=== PATIENT | male | born 1940 | race Caucasian/White ===

== ENCOUNTER 2017-03-21 15:41 | Inpatient (IN) | payer OTHER, MEDICARE ==
[~2017-03-21] VITALS: Ht 172.7 cm; Wt 31.3 kg
--- NOTE | ~2017-03-21 | PR ---
[place], [place] PROGRESS NOTE NAME: [facility] [id number] UNIT #: [id number] ROOM: 312 DOCTOR: GIANCARLO HENDRICKS MD BIRTHDATE: [birth year] DOS: 03/28/2017 CHIEF COMPLAINT: "Good morning. Thanks for coming." SUMMARY OF THE VISIT: The patient was interviewed as he sat in the dining area. He had finished his breakfast and he was sitting and watching television. He engaged in brief superficial conversation. He remains pleasantly confused, but not agitated. There was no mood lability noted. His responses tended to be short and simple, at times very vague and at other times inappropriate, but pleasant. MENTAL STATUS: He is alert and oriented to self. It is unclear if he realizes he is in the hospital. He is certainly not oriented to time. Mood does seem to be trending towards euthymia and affect is much more appropriate. There are no symptoms of hypomania or chau. There are no overt auditory or visual hallucinations. No delusions, no paranoia. Short term memory is exceptionally poor. Otherwise, he is intact. PLAN: His valproic acid level is therapeutic at 92.1. I will renew his p.r.n. Ativan in case he requires p.r.n. intervention, maintain other psychotropics, engage in individual and glover milieu activity, returning to [facility] [address] when psychiatrically stable. GIANCARLO HENDRICKS MD CM:PNTRANS [phone] GIANCARLO HENDRICKS MD 03/28/17 215 interface
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
--- NOTE | ~2017-03-21 | PR ---
[place], [place] PROGRESS NOTE NAME: [id number] UNIT #: [id number] ROOM: 312 DOCTOR: GIANCARLO HENDRICKS MD BIRTHDATE: [birth year] DOS: 03/29/2017 CHIEF COMPLAINT: "Oh! Thank you for everything. Everything has been fine." SUMMARY OF THE VISIT: The patient was interviewed as he just sat down in the dining area to eat breakfast. He was bright and pleasant upon approach and offered no complaints. He reports that he slept well and is ready for breakfast and something to drink. He was very complementary about being here, but could not tell me exactly how long he has been here. MENTAL STATUS: He was alert and oriented to person, possibly place, but not time. Mood did seem to be trending towards euthymia and affect is much more appropriate. There are no symptoms of chau or hypomania. There are no auditory or visual hallucinations. No delusions are present. Short term memory is poor. Otherwise, he is intact. PLAN: I will maintain the current psychotropic regimen, engage in individual and glover milieu activity with the ultimate plan to return to [address] when psychiatrically stable. GIANCARLO HENDRICKS MD CM:PNTRANS [id number] GIANCARLO HENDRICKS MD 03/29/17 1145 interface
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
--- NOTE | ~2017-03-21 | PR ---
[place], [place] PROGRESS NOTE [id number] UNIT #: [id number] ROOM: 312 DOCTOR: GIANCARLO HENDRICKS MD BIRTHDATE: [birth year] DOS: 03/27/2017 INTERVAL NOTE CHIEF COMPLAINT: "Good morning, thank you for breakfast." SUMMARY OF THE VISIT: The patient was interviewed as he rested in bed. He engaged readily in conversation, most of it superficial. He even though was spontaneous and did thank me for providing him breakfast. He was fairly pleasant overall. Nurses' notes indicate that his behavior seems to have been improving gradually over the last 24-36 hours. There have been no episodes of extreme agitation, mood lability or sexually inappropriate behavior. He does seem to be tolerating the current medication regimen well. MENTAL STATUS: He is alert and oriented to self, possibly place, not time. Mood does seem to be trending towards euthymia. Affect is more appropriate. There are no symptoms of chau or hypomania. There are no overt auditory or visual hallucinations, delusions or paranoia. Short-term memory is poor, otherwise he is intact. PLAN: I will go ahead and maximize out the dose of Namenda from 15 mg a day to 20 mg a day given in 10 mg twice daily dosing. I will recheck a valproic acid level in the a.m. to ensure that it is therapeutic. We will engage in individual and glover milieu activity with the plan to return to the [facility] [address] when psychiatrically stable. GIANCARLO HENDRICKS MD CM:PNTRANS [phone] GIANCARLO HENDRICKS MD 03/28/17 0209 interface
--- NOTE | ~2017-03-21 | PR ---
[place], [place] PROGRESS NOTE [id number] UNIT #: [id number] ROOM: 312 DOCTOR: GIANCARLO HENDRICKS MD BIRTHDATE: [birth year] DOS: 03/23/2017 CHIEF COMPLAINT: "Where do I go for breakfast." SUMMARY OF THE VISIT: The patient was interviewed as he was pacing around in the dining area. He stopped and engaged in conversation with me. He was much more goal directed in his speech today and more interested in talking to me than he was yesterday. Nurses report that after a rather difficult 24 hours here, he has subsequently restabilized and seems to be more redirectable. He does seem to respond to a more firm response and does tend to back down. He needs a great deal of support and redirection as well as he does seem to be somewhat fretful and fearful that tends to then trigger his anxiety leaving to agitation. He does seem to be tolerating the current medication regimen well and I see no sedation, somnolence, or other side effects. MENTAL STATUS: He is alert and oriented to self, possibly place, not time. Mood does seem to be slightly trending towards euthymia this morning and he does seem to be more appropriate in his responses. There is no symptom suggestive of chau or hypomania. There are no overt auditory or visual hallucinations noted. No paranoia. Short-term memory is exceedingly poor, otherwise he is intact. PLAN: I will increase Namenda from 5 mg a day to 5 mg twice daily while subsequently increasing the Exelon patch from 4.6 mg daily to 9.5 mg a day. Both of these in order to improve or maintain ADLs, behavior, and cognition. Continue Depakote as is. We will check a level in the a.m. Engage in individual and glover milieu activity with the plan to return to the [facility] [address] when psychiatrically stable. GIANCARLO HENDRICKS MD CM:PNTRANS [phone] GIANCARLO HENDRICKS MD 03/23/17 0927 interface
--- NOTE | ~2017-03-21 | PR ---
[place], [place] PROGRESS NOTE NAME: [facility]AY[facility] [id number] UNIT #: [id number] ROOM: 312 DOCTOR: GIANCARLO HENDRICKS MD BIRTHDATE: [birth year] DOS: 03/25/2017 INTERVAL NOTE CHIEF COMPLAINT: "Morning, I had a good breakfast thank you." SUMMARY OF THE VISIT: The patient was interviewed in the dining area where he sat by himself. He had most of his breakfast eaten and thanked me for having brought his breakfast to him. He engaged readily in conversation and tended to be somewhat minimizing in his comments. Nurses report that he seems to be trending toward improvement and that his behavior yesterday seemed much more pleasant. There was no verbal or physical aggression noted and no sexually inappropriate behavior. MENTAL STATUS: He is alert and oriented to self, possibly place, not time. Mood seems to be trending towards euthymia. Affect is more appropriate. There are no symptoms of chau or hypomania. No psychotic symptoms are noted. He does process slowly and short term memory is poor. PLAN: Screening examination showed his vitamin D to be low at 14.4, so I will start him on vitamin D 50,000 international units weekly. Vitamin B12 is fairly therapeutic at 274 and he is close enough to being deficient that I will start him on vitamin B12 injection 1000 mcg IM today and monthly thereafter to prevent a B12 deficiency. We will engage him in individual and glover milieu activity with the ultimate plan to return back to the [facility] [address] when psychiatrically stable. GIANCARLO HENDRICKS MD CM:PNTRANS GIANCARLO HENDRICKS MD 03/25/17 0919 interface
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
--- NOTE | ~2017-03-21 | PR ---
[place], [place] PROGRESS NOTE NAME: ERICK NAYAK UNIT #: [id number] ROOM: 312 DOCTOR: GIANCARLO HENDRICKS MD BIRTHDATE: [birth year] DOS: 03/26/2017 INTERVAL NOTE CHIEF COMPLAINT: "Oh thank you for breakfast, this all looks good." SUMMARY OF THE VISIT: The patient was interviewed in the dining area where he was sitting, eating his breakfast. He stopped and engaged readily in conversation. He was fairly bright and pleasant. He reported that he slept well and has a good appetite. He was very much approximate on how long he has been here stating that he believes he has been here in the hospital for roughly a week. He was more pleasant and cooperative than he had been previously and exhibited no mood lability, agitation, aggression or sexually inappropriate behavior. MENTAL STATUS: He is alert and oriented to person, place, not necessarily time. Mood does seem to be trending towards euthymia. Affect is more appropriate. There are no symptoms of hypomania or chau. There are no overt auditory or visual hallucinations. No delusions, no paranoia. Short term memory is poor. Otherwise, he is intact. PLAN: I will increase Namenda to 10 mg in the morning and 5 mg at night with the ultimate goal of achieving 20 mg daily to augment the effectiveness of the Exelon patch. We will continue to engage him in individual and glover milieu activity with the ultimate plan to return either to the [facility] [address] or the least restrictive environment when psychiatrically stable. GIANCARLO HENDRICKS MD CM:PNTRANS [phone] GIANCARLO HENDRICKS MD 03/27/17 0012 interface
[2017-03-21] MEDS ORDERED: COLACE100 MG PO (15:45)
[2017-03-21] MEDS ORDERED: LEVOTHYROXINE0.05 MG PO (15:46)
[2017-03-21] MEDS ORDERED: TOPROL XL25 MG PO (15:47)
[2017-03-21] MEDS ORDERED: MULTIVITAMINS1 EACH PO (15:48)
[2017-03-21] MEDS ORDERED: ASPIRIN81 M1 PO (15:49)
[2017-03-21] MEDS ORDERED: RISPERDAL1 M1 PO (15:52)
[2017-03-21] MEDS ORDERED: ATIVAN1 MG PO ×2 (15:53→16:01)
[2017-03-21] MEDS ORDERED: PLAVIX75 M1 PO (15:56)
[2017-03-21] MEDS ORDERED: BAZA ANTIFUNGAL 2% TP (15:57)
[2017-03-21] MEDS ORDERED: NORCO 5-325 TA1 EACH PO (15:58)
[2017-03-21] MEDS ORDERED: HALDOL5 MG PO (16:00)
[2017-03-21] MEDS ORDERED: DULCOLAX10 M1 RC (16:02)
[2017-03-21] MEDS ORDERED: TYLENOL325 M2 PO (16:04)
[2017-03-21 18:38] VITALS: BP 132/62
[2017-03-21 18:49] VITALS: BP 132/62
[2017-03-22 08:00] VITALS: BP 128/57
[2017-03-22 08:59] LABS: BASO % 0.5 % (0.0-1.0); EOS # 0.2 10*3/uL (0.0-0.4); EOS % 1.9 % (1.0-4.0); HEMATOCRIT 45.2 % (42.0-52.0); HEMOGLOBIN 15.5 g/dl (14.0-18.0); LYMPH # 1.6 10*3/uL (1.3-4.4); LYMPH % 19.8 % (27.0-41.0); MEAN CELL VOLUME 99.3 fl (80.0-94.0); MEAN CORPUSCULAR HGB 34.1 pg (27.0-31.0); MEAN CORPUSCULAR HGB CONC 34.3 g/dl (33.0-37.0); MONO # 0.7 10*3/uL (0.1-1.0); MONO % 8.1 % (3.0-9.0); NEUT # 5.8 10*3/uL (2.3-7.9); NEUT % 69.3 % (47.0-73.0); PLATELET COUNT AUTOMATED 205 10*3/uL (130-400); RED BLOOD COUNT 4.55 10*6/uL (4.50-5.90); WHITE BLOOD COUNT 8.3 10*3/uL (4.8-10.8)
[2017-03-22 09:31] LABS: HEMOGLOBIN A1c 6.1 % (4.8-5.6)
[2017-03-22 09:37] LABS: ALBUMIN 3.6 gm/dl (3.1-4.5); ALKALINE PHOSPHATASE 102 U/L (45-117); BILIRUBIN, TOTAL 0.7 mg/dl (0.2-1.0); BUN 7 mg/dl (7-24); CARBON DIOXIDE 30 mmol/L (21-32); CHLORIDE 106 mmol/L (98-107); EST GLOM FILT AFRICAN AMERICAN > 60 ml/min; GLUCOSE 184 mg/dL (65-99); POTASSIUM 3.9 mmol/L (3.5-5.1); SGOT/AST 18 IU/L (3-35); SGPT/ALT 20 U/L (12-78); SODIUM 140 mmol/L (136-145); THYROXINE (T4) TOTAL 11.3 ug/dl (4.5-12.1); TOTAL PROTEIN 7.6 gm/dL (6.4-8.2)
[2017-03-22 19:52] VITALS: BP 115/85
[2017-03-23 08:00] VITALS: BP 132/65
[2017-03-23 20:00] VITALS: BP 131/94
[2017-03-24 07:22] LABS: BILIRUBIN NEGATIVE (NEGATIVE); BLOOD NEGATIVE (NEGATIVE); CLARITY CLEAR (CLEAR); COLOR YELLOW (YELLOW); GLUCOSE NEGATIVE (NEGATIVE); KETONE 1+ (NEGATIVE); LEUKO ESTERASE NEGATIVE (NEGATIVE); NITRITE NEGATIVE (NEGATIVE); PH 5.5 (5.0-9.0); PROTEIN NEGATIVE (NEGATIVE); UROBILINOGEN 0.2 E.U./dl (0.2-1.0)
[2017-03-24 07:29] LABS: URINE REFLEX COMMENT NO (NO)
[2017-03-24 08:16] VITALS: BP 113/60
[2017-03-24 11:05] LABS: VITAMIN D, 25-HYDROXY 14.4 ng/mL (30-100)
[2017-03-24 19:39] VITALS: BP 131/63
[2017-03-25 07:23] VITALS: BP 133/59
[2017-03-25 20:02] VITALS: BP 116/65
[2017-03-26 07:59] VITALS: BP 151/97
[2017-03-27 07:52] VITALS: BP 132/57
[2017-03-28 07:56] VITALS: BP 131/62
[2017-03-28 19:37] VITALS: BP 111/54
[2017-03-29 07:33] VITALS: BP 141/64
[2017-03-29 20:58] VITALS: BP 133/84
[2017-03-30 07:49] VITALS: BP 112/55
[2017-03-30] MEDS ORDERED: CITALOPRAM HYDR20 MG PO (08:06)
[2017-03-30] MEDS ORDERED: DIVALPROEX SOD500 MG PO (08:06)
[2017-03-30] MEDS ORDERED: EXELON13.3 MG/21 T (08:06)
[2017-03-30] MEDS ORDERED: MEMANTINE HCL10 MG PO (08:06)
[2017-03-30] MEDS ORDERED: VITAMIN D50000 I3 PO (08:06)
== END 2017-03-30 10:14 | disposition home or self-care (01) | DRG 57 ==
LOC: 3N 15:41
PROVIDERS: Internal Medicine; Psychiatry & Neurology Psychiatry
DX: G30.9 Alzheimer's disease, unspecified (principal); F33.3 Major depressive disorder, recurrent, severe with psychotic symptoms; F02.80 Dementia in other diseases classified elsewhere, unspecified severity, without behavioral disturbance, psychotic disturbance, mood disturbance, and anxiety; D75.89 Other specified diseases of blood and blood-forming organs; F23 Brief psychotic disorder; F63.9 Impulse disorder, unspecified; E78.5 Hyperlipidemia, unspecified; E03.9 Hypothyroidism, unspecified; I25.10 Atherosclerotic heart disease of native coronary artery without angina pectoris; F41.9 Anxiety disorder, unspecified; I10 Essential (primary) hypertension; E74.39 Other disorders of intestinal carbohydrate absorption; E83.51 Hypocalcemia; Z95.1 Presence of aortocoronary bypass graft; Z90.49 Acquired absence of other specified parts of digestive tract; Z88.0 Allergy status to penicillin; Z82.0 Family history of epilepsy and other diseases of the nervous system; Z79.82 Long term (current) use of aspirin; Z79.1 Long term (current) use of non-steroidal anti-inflammatories (NSAID); Z79.899 Other long term (current) drug therapy